=== PATIENT | female | born 1960 | race Caucasian/White ===

== ENCOUNTER 2018-09-04 10:04 | Inpatient (IN) ==
--- NOTE | 2018-09-04 09:04 | Discharge Summary ---
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 Qualifiers: Encounter type: subsequent encounter Qualified Code(s): T84.032D - Mechanical loosening of internal right knee prosthetic joint, subsequent encounter (2) Status post unicompartmental knee replacement, right Priority: Primary Status: Chronic (3) Status post revision of total replacement of right knee Priority: Primary Status: Acute (4) Stress incontinence Priority: Secondary Status: Chronic (5) Hepatitis A Priority: Secondary Status: Chronic Qualifiers: Hepatic coma status: without hepatic coma Qualified Code(s): B15.9 - Hepatitis A without hepatic coma - Hospital Course Hospital course: Ms. Moon is a 58 year old female POD#1 Right revision robotic-assisted Total knee replacement 09/04/18 Dr. Maxwell PCR - Patient seen at bedside. Relative at bedside. A&Ox3 Dressing and incision c/d/i Zipline and yara intact No calf tenderness, erythema, or warmth. Neurovascularly intact b/l LE. Labwork and medications reviewed. Pain control: Adequate - has been getting Toradol and Ofirmev -Ibuprofen and Tylenol sent for outpatient use Participating in PT. All questions and concerns addressed. Educated on use of incentive spirometer, ambulation, and hydration. Patient educated on post-operative restrictions and care. Addressed: see above. Also patient having itching after anesthesia- patient to continue with Benadryl - script provided as well. D/C plan: Home with outpatient therapy today, 09/05 - Time Spent with Patient Total time spent providing and/or coordinating discharge services: - Discharge Medications Home Medications: Aspirin Enteric Coated [Aspirin EC] 325 mg PO BID 10 Days #20 tablet. 09/04/18 [Rx] Diclofenac Sodium 1 appl TP TID 09/04/18 [History] Docusate Sodium [Colace] 100 mg PO BID 5 Days #10 capsule 09/04/18 [Rx] Duloxetine HCl [Cymbalta] 60 mg PO DAILY 09/04/18 [History] OxyCODONE Immed Rel [Roxicodone 5 MG] 5 mg PO Q6HR PRN 7 Days #28 tablet 09/04/18 [Rx] Oxybutynin [Ditropan] 5 mg PO BID 09/04/18 [History] Allergies/Adverse Reactions: Allergy/AdvReac Type Severity Reaction Status Date / Time No Known Allergies Allergy Verified 09/04/18 10:45 Date of admission: 09/04/18 Primary care physician: Jozef Jaramillo MD Discharging clinician: Gregg Maxwell - VTE Documentation of Mechanical Device: Venous foot pump, device - Patient Status Disposition: Home, Self-Care Condition: Good Functional capacity at discharge: uses cane/walker Overall status at discharge: patient is progressing back to baseline - Discharge Instructions Follow Up With: Jozef Jaramillo MD [Primary Care Provider] - Additional Instructions: Discharge Instructions: Total Knee Replacement Please call [facility] ([phone]), your Primary Care Physician, or report to the Emergency Room if you have any of the following symptoms: Nausea, vomiting, fever greater that 101.5, swelling, chest pain, shortness of breath, increased pain/redness/drainage/odor for your incision site, numbness/tingling, or any other concerning symptoms. ACTIVITY:Weight-bearing as tolerated. You may progress off support (crutches or walker) as tolerated. Incentive Spirometer 10 times an hour. MEDICATIONS: Upon discharge resume your home medications. Take all the medications as prescribed. Take a stool softener if taking narcotic pain medications. Stool softeners are only effective if you drink enough fluids. Drink 6-8 glass of water or fluids a day, unless this is not allowed for another health problem. Despite using stool softeners, if you haven't had a bowel movement in 3 days, please switch to a gentle laxative. Gentle laxatives are sold over the counter. You should have a bowel movement within 24 hours, if not call the office. You will be discharged from the hospital with a prescription for pain medication. You are encouraged to decrease the use of narcotic pain medication as tolerated. Should you require a refill, please call the office. [facility] prescribes narcotic pain medication for only 4-6 weeks after surgery. If you require pain medication beyond this time period, you may be referred to your Primary Care Physician or to the Pain Clinic for further evaluation. Plan ahead for refills on pain medication as many narcotics either need to be picked up at the office or mailed. It is best to call 48-72 hours in advance of needing a prescription refill so you don't run out of medication. To help control the post-operative pain, you may take NSAIDs (Aleve,Advil, Motrin, Ibuprofen, Naprosyn) or Tylenol as prescribed on the bottle in addition to the pain medication. ANTICOAGULATION (blood thinners): Continue your Aspirin, Lovenox or Coumadin as prescribed to help prevent a blood clot in the leg or in the lungs. As long as your incision remains dry and you tolerate the NSAIDs (Aleve, Advil, Motrin, ibuprofen, naprosyn), it is OK to use the NSAIDS while you are taking your anticoagulation medication. Should your incision start to drain, stop the NSAID and contact our office. Common symptoms of blood clot in the legs include: localized pain, swelling, calf tenderness, redness or discoloration of the skin. Blood clot in the lung symptoms include: shortness of breath, rapid pulse, sweating, and chest pain that worsens with deep breathing, coughing up blood, lightheadedness, feelings of anxiety. If you experience any of these symptoms notify your physician immediately, go to the emergency room, or if having trouble breathing, call 911. WOUND CARE: Leave the dressing on for 7 to 10days. You may change the dressing if it becomes saturated greater than 50%. Do not get the dressing wet at anytime. Wash your hands with antibacterial soap, rinse and dry prior to any wound care. If you have yara the visiting nurse or rehab facility can remove the stapes 10-14 days after surgery and place steri-strips across the wound. Leave the steri-strips in place until they fall off on their won. You may let water from the shower run on top of the steri-strips. If you do not have a visiting nurse or rehab facility, you will need to return to the office at 10-14 days for the yara to be removed. If you have itching or redness around the dressing call the office. FOLLOW-UP: Please follow up with your surgeon in the orthopedic clinic in 4 weeks from the day of surgery. If you have yara that need to be removed, you will need to come back to the office in 10-14 days from the day of surgery. - Diet and Activity Activity: as per physical therapy Diet: advance to your usual diet
[2018-09-04] MEDS ORDERED: CeFAZolin Syr 2,000MG/20 ML 2,000 MG/20 ML SYRINGE IVPB ONE (10:22)
[2018-09-04] MEDS ORDERED: Ringers Solution, Lactated 1,000 ML IVC SCH ×2 (10:30→16:03)
[2018-09-04] MEDS ORDERED: Propofol 500 MG/50 ML INFUS..BTL ONE (10:40)
[2018-09-04] MEDS ORDERED: Lidocaine -MPF 2% 2 ML VIAL ONE (10:40)
[2018-09-04] MEDS ORDERED: *HR* FentaNYL (PF) 100 MCG/2 ML VIAL ONE (10:41)
[2018-09-04] MEDS ORDERED: *HR* Midazolam HCl 2 MG/2 ML VIAL ONE (10:41)
--- NOTE | 2018-09-04 10:47 | History & Physical Report ---
Date of Encounter: 09/04/18 Time of Encounter: 10:47 24 Hour HP Update - Instructions Instructions: If the History and Physical is less than 30 days old and was completed prior to A.M. admission and or procedure and has NOT been updated on calendar day of procedure please complete this update prior to performing procedure. - Update Patient reports changes in Medical Condition: No Changes in examination, assessment, or condition: No Changes in Medication: No Preop tests/diagnostics Reviewed: Yes Surgery Remains Indicated: Yes Consent for Planned Operative Procedure(s) Verified: Yes - Pre-Operative Checklist Preoperative Checklist Indicated: No Prophylactic Antibiotic Ordered: Yes Is VTE Prophylaxis Indicated?: Yes
[2018-09-04] MEDS ORDERED: Famotidine 20 MG/2 ML VIAL IVP ONE (10:53)
[2018-09-04] MEDS ORDERED: Celecoxib 100 MG CAPSULE PO ONE (10:54)
[2018-09-04] MEDS ORDERED: Pregabalin 75 MG CAPSULE PO ONE (10:54)
--- NOTE | 2018-09-04 10:58 | Anesthesia Evaluation PreOp ---
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 09/04/18 [Rx] Diclofenac Sodium 1 appl TP TID 09/04/18 [History] Docusate Sodium [Colace] 100 mg PO BID 5 Days #10 capsule 09/04/18 [Rx] Duloxetine HCl [Cymbalta] 60 mg PO DAILY 09/04/18 [History] OxyCODONE Immed Rel [Roxicodone 5 MG] 5 mg PO Q6HR PRN 7 Days #28 tablet 09/04/18 [Rx] Oxybutynin [Ditropan] 5 mg PO BID 09/04/18 [History] Allergy/AdvReac Type Severity Reaction Status Date / Time No Known Allergies Allergy Verified 09/04/18 10:45 - Meds/Allergy Pre-op Review Medications Reviewed: Yes Allergies Reviewed: Yes Beta Blockers on Current Med List: No Anesthesia Results - Labs Laboratory Tests 04/10/18 08/31/18 08/31/18 08:10 09:55 09:55 Hgb 14.4 POC Hgb 12.1 Plt Count 228 PT 10.8 INR 1.0 APTT 35.2 Sodium Potassium BUN Creatinine 08/31/18 09:55 Hgb POC Hgb Plt Count PT INR APTT Sodium 139 Potassium 4.0 BUN 8 Creatinine 0.66 - Imaging EKG: report reviewed (SR) Anesthesia Exam O2 Sat Height 1.65 m Height 1.65 m Weight 72.121 kg Weight 72.121 kg O2 Sat by Pulse Oximetry 97 Vital Signs Temp Pulse Resp BP Pulse Ox 98.3 F 74 18 147/82 97 09/04/18 10:27 09/04/18 10:27 09/04/18 10:27 09/04/18 10:27 09/04/18 10:27 Height: 5'5 Weight: 159 lbs NPO (# of Hours): MN Pain Scale: 0 - HEENT Pupil (Motor): Pupils equal, EOMI Mallampati: II Teeth: Normal Oral Opening: Greater than 3 - LEVELING MACHINE OPERATOR LOC: Oriented LEVELING MACHINE OPERATOR Motor: Normal RUE, Normal LUE, Normal RLE, Normal LLE, Normal Face LEVELING MACHINE OPERATOR Sensory: Normal: RUE, LUE, RLE, LLE, Face - Cardiac Rhythm: Regular Murmur: None JVD: No Carotid Bruit: No - Pulmonary Breath Sounds: bilateral Clear Respiratory Effort: Symmetrical Anesthesia Assess/Plan ASA Score: 2 Level of consciousness: Cooperative, Oriented Anesthetic Plan: Regional Nerve Block, Spinal Regional Nerve Block Plan: Adductor canal Autologous Blood: No Monitoring Plan: Standard Monitors Recovery Plan: PACU (Discussed SAB, Adductor Canal Block, possible GA, agrees to proceed)
[2018-09-04] MEDS ORDERED: Tranexamic Acid 1,000 MG/10 ML VIAL ONE (11:12)
[2018-09-04] MEDS ORDERED: Ethanol\\Acetic Acid\\Na Ace\\Ben 1,000 ML IRRIG.SOLN IR ONE (11:25)
[2018-09-04] MEDS ORDERED: *HR* Morphine Sulfate/PF 10 MG/10 ML AMPUL ONE (11:30)
[2018-09-04] MEDS ORDERED: ROPIVACAINE HCL/PF 0.5% 30 ML VIAL ONE (11:31)
[2018-09-04] MEDS ORDERED: Tetracaine/PF 20 MG/2 ML AMPUL ONE (11:31)
[2018-09-04] MEDS ORDERED: Lidocaine -MPF 1% 5 ML AMPUL ONE (11:37)
--- NOTE | 2018-09-04 12:27 | Anesthesia Procedures ---
Date of Encounter: 09/04/18 Time of Encounter: 10:55 Procedures: Anesthesia - Epidural/Spinal Patient ID/Chart reviewed: Yes Patient examined: Yes Consent Obtained: Yes Supplemental Oxygen: Nasal Cannula Supplemental Oxygen Rate (L/min): 2 Sedation: Versed (mg): 2 Sedation: Fentanyl (mcg): 50 Site Prep: Aseptic Technique, Sterile prep and drape, Povidone-Iodine 1% Patient position: upright Local Anesthetic: Lidocaine 1% Amount of Local Anesthetic used: 5 Interspace Used: L4-L5 Loss of Resistance (SEBLE): No Blood: No CSF: Yes Paresthesia: No Spinal Needle Gauge: 24 Spinal Dose: 10 mg isobaric marcaine, duramorph 250 micrograms Procedure: Pt sitting, monitors placed, sterile P and Drape betadine Midline L4-5, patient tolerated procedure well Vitals + FHT's: Vital Signs/O2 Sat/Glucose, Most Current Temp Pulse Resp BP Pulse Ox 09/04/18 12:24 71 129/79 99 09/04/18 12:20 74 126/73 99 09/04/18 12:17 69 127/73 99 09/04/18 12:14 68 123/75 99 09/04/18 12:09 73 126/72 98 09/04/18 11:54 81 142/78 99 09/04/18 10:27 98.3 F 74 18 147/82 97 - Nerve Block Procedure Date: 09/04/18 Time: 12:00 Pre-op Diagnosis: Aseptic Loosening Rt TKA Surgical Procedure: Revision TKA Checklist: Correct Patient Identifier Correct side: Right Blood Thinner: No Monitor Applied: EKG, BP, Pulse Oximetry Sedation: Versed (mg): 2 Sedation: Fentanyl (mcg): 50 Indication: Post Op Analgesia Pre-op Neuro Deficits: No Block Type: Other (Adductor Canal Block) Catheter placed: No Sterile Technique: Yes Ultrasound used: Yes Anatomy identified: Yes Visual spread of Local: Yes Neuro Stimulation: No Blood on Needle Aspiration: No Smooth Injection of Local: Yes Pain with Injection of Local: No Prep: Chlorhexadine Needle: 21 x 100 mm Stimuplex Local: Tetracaine (20), Ropivacaine (0.5%) Volume (cc): 30 Number of Attempts: 1 Complications: None/effective block Vitals: Vital Signs/O2 Sat/Glucose, Most Current Temp Pulse Resp BP Pulse Ox 09/04/18 12:24 71 129/79 99 09/04/18 12:20 74 126/73 99 09/04/18 12:17 69 127/73 99 09/04/18 12:14 68 123/75 99 09/04/18 12:09 73 126/72 98 09/04/18 11:54 81 142/78 99 09/04/18 10:27 98.3 F 74 18 147/82 97
[2018-09-04] MEDS ORDERED: *HR* Promethazine 25 MG/ML VIAL IVP PRN (12:45)
[2018-09-04] MEDS ORDERED: *HR* Morphine 2 MG/ML SYRINGE IVP PRN (12:45)
[2018-09-04] MEDS ORDERED: *HR* OxyCODONE Immed Rel 5 MG TABLET PO PRN (12:45)
[2018-09-04] MEDS ORDERED: *HR* PHENYLEPHRINE 1,000 MCG/10 ML SYRINGE IVP ONE (13:57)
--- NOTE | 2018-09-04 13:59 | Orthopedic Operative Note ---
Date of procedure: 09/04/18 Pre-op diagnosis: Aseptic loosening right unicondylar knee replacement Post-op diagnosis: same Procedure: Procedure: Right revision robotic-assisted Total knee replacement Estimated blood loss: 200 cc Hardware: Metal and polyethylene replacement. Press-fit Liz Femur: 3 Tibia: 4 PS insert: 16 Patella: 36 Exam Under anesthesia: 5 degrees hyperextension 5 degree varus as calculated by the robot full flexion and no instability Procedural Notes: Aseptic loosening femoral and tibial components, grade 4 changes patella Operative procedure: The patient was brought to the operating room and placed on the operating room table. After general anesthesia was administered the operative knee was examined. Findings were noted in the exam under anesthesia. The operative extremity was prepped and draped in sterile surgical fashion. The patient received IV antibiotics prior to skin incision. The incision was made through the old incision. A standard midline incision was made centered over the patella. The incision was made through the skin and subcutaneous tissue. A medial parapatellar tendon approach was performed. Care was taken to preserve tissue along the medial aspect of the patella. And to protect the patella tendon. The deep MCL was released off the medial tibia. The infra patella fat pad was excised. Wound encountered was consistent with normal joint fluid was sent for Gram stain and culture. The patella was everted and cut was made at the level of the insertion of the quadriceps and patella tendon. The patella was sized the guide was seated and the lug holes are drilled. Knee was brought into flexion. Patient noted to have grade 4 changes patella. Steinmann pins were placed in the tibia and the femur for the tibial and femoral arrays respectively. Checkpoints were also placed in the tibia and the femur for calculation purposes. The knee including the femur and the tibial registered. Osteophytes, ACL and PCL were excised at this point. Extension and flexion were assessed with a valgus stress components were adjusted on the computer to balance the knee. The femoral and tibial components were loose and removed without incident. Femoral cuts were made first with robotic assistance, these included the anterior cut posterior cuts chamfer cuts. Tibial cut was then performed with robotic assistance as well. Bone fragments were removed, as well as the medial and lateral meniscus. The size 3 femoral guide was seated box cut was made lug holes are drilled. The size 4 tibial tray was seated and prepared with the fin cutter. Trial reduction with the 16 PS Carey revealed extension of 0 degree and 3 degrees varus full flexion. No varus valgus instability. Trial reduction revealed excellent patella tracking. All trial components were removed all bony surfaces were irrigated. The Tibia was seated followed by the femur, The selected Carey size was seated and secured patella. Patient had similar findings for motion and stability. The knee was closed by the PA. The knee was then irrigated out with 2 L of pulse irrigation. The extensor mechanism was closed with #2 FiberWire suture and #2 PDS suture. The subcutaneous tissue was then irrigated and closed deep with #1 PDS suture superficially with 0 PDS suture and skin was closed with zip tie The patient was then placed in a sterile dressing and a postoperative brace extubated and transferred to recovery room in stable condition. Anesthesia: spinal Surgeon: Gregg Maxwell Was there an marketing administrative assistant present: Yes Glove Tagger: Ashley Lee Estimated blood loss (cc): 200 Condition: stable Disposition: PACU
--- NOTE | 2018-09-04 14:51 | Anesthesia Evaluation Post Op ---
Date of Encounter: 09/04/18 Time of Encounter: 14:50 - Vital Signs Vital Signs: vss - Lungs Lungs: Clear Ascult./Percussion - Airway Airway: Non-obstructed - Cardiovascular Regular Rate, Baseline Rhythm - Mental Status Mental Status: Alert & Oriented, Answers Appropriately - Pain Pain Scale: 0 (pt had SAB and currently has sensation at level of hips) Pain Scale used: Numeric (1 - 10) - Nausea Vomiting Nausea Vomiting: Not Present - Hydration Hydration: Tolerates oral liquids, Ice chips - Discharge PostOp Status: Transfer Patient to floor
[2018-09-04 15:48] LABS: Hematocrit 36.6 % (35.3-44.9)
[2018-09-04 15:52] LABS: Hemoglobin 12.1 g/dL (11.5-15.4)
[2018-09-04] MEDS ORDERED: MOM Conc 10 ML UD.LIQ PO PRN (16:03)
[2018-09-04] MEDS ORDERED: Sennosides 8.6 MG TABLET PO PRN (16:03)
[2018-09-04] MEDS ORDERED: Naloxone 0.4 MG/ML INJ IVP PRN (16:03)
[2018-09-04] MEDS ORDERED: traMADol 50 MG TABLET PO PRN (16:03)
[2018-09-04] MEDS ORDERED: Temazepam 15 MG CAPSULE PO PRN (16:03)
[2018-09-04] MEDS ORDERED: *HR* Enoxaparin 30 MG/0.3 ML SYRINGE SQ SCH (18:00)
[2018-09-04] MEDS: *HR* Enoxaparin 30 MG/0.3 ML SYRINGE SQ SCH (18:15)
[2018-09-04] MEDS: *HR* OxyCODONE/APAP 5/325 TABLET PO PRN (20:26)
[2018-09-04] MEDS: Ondansetron 4 MG/2 ML VIAL IVP PRN (21:17)
[2018-09-04] MEDS: *HR* OxyCODONE Immed Rel 5 MG TABLET PO PRN (23:33)
[2018-09-05] MEDS: *HR* OxyCODONE Immed Rel 5 MG TABLET PO PRN (03:07)
[2018-09-05] MEDS: *HR* OxyCODONE/APAP 5/325 TABLET PO PRN (05:14)
[2018-09-05] MEDS: *HR* Enoxaparin 30 MG/0.3 ML SYRINGE SQ SCH (05:15)
[2018-09-05 06:08] LABS: Hematocrit 32.9 % (35.3-44.9)
[2018-09-05 06:09] LABS: BUN/Creatinine Ratio 14 (6-26); Blood Urea Nitrogen 9 mg/dL (8-23); Calcium 8.4 mg/dL (8.6-10.3); Carbon Dioxide 22 mEq/L (23-29); Chloride 100 mEq/L (98-107); Glucose 102 mg/dL (70-105); Osmolality,Calculated 271 (280-300); Potassium 3.7 mEq/L (3.5-5.1); Sodium 131 mEq/L (136-145); eGFR For Non-African Americans > 60 (> 60)
[2018-09-05 06:24] VITALS: BP 116/76
[2018-09-05] MEDS: Ondansetron 4 MG/2 ML VIAL IVP PRN (06:28)
--- NOTE | 2018-09-05 06:37 | Orthopedics Progress Note ---
Date of Encounter: 09/05/18 Time of Encounter: 06:36 Subjective Interval history: Patient was seen this morning doing well without complaints. Afebrile vital signs stable. Operative extremity: Neurovascularly intact Dressing clean dry and intact Calves nontender Assessment and plan: Continue with postoperative care Gram stain negative for bacteria plan for discharge today Objective Vital signs: Vital Signs Temp Pulse Resp BP Pulse Ox 09/05/18 06:21 98.5 F 83 16 116/76 96 09/05/18 04:06 98.3 F 91 16 120/70 95 09/04/18 22:57 98.3 F 93 17 118/72 94 09/04/18 18:21 98.0 F 72 16 130/81 96 09/04/18 16:54 128/82 09/04/18 15:34 97.2 F L 67 16 122/77 97 09/04/18 15:06 98.2 F 69 14 130/62 97 09/04/18 14:56 98.2 F 70 14 122/69 100 09/04/18 14:46 60 14 114/77 97 09/04/18 14:36 67 16 126/73 99 09/04/18 14:26 98 F 74 18 121/82 99 09/04/18 12:47 97 127/71 100 09/04/18 12:43 67 125/73 100 09/04/18 12:40 67 121/73 100 09/04/18 12:35 68 130/79 100 09/04/18 12:31 64 126/76 100 09/04/18 12:27 70 126/82 100 09/04/18 12:24 71 129/79 99 09/04/18 12:20 74 126/73 99 09/04/18 12:17 69 127/73 99 09/04/18 12:14 68 123/75 99 09/04/18 12:09 73 126/72 98 09/04/18 11:54 81 142/78 99 09/04/18 10:27 98.3 F 74 18 147/82 97 Intake and Output 09/04/18 09/04/18 09/05/18 15:59 23:59 07:59 Intake Total 100 / 100 100 / 100 Output Total 200 / 200 Balance -200 / -200 100 / 100 100 / 100 Intake: IV Fluids 100 / 100 100 / 100 Ancef 2,000 MG In 0.9 % Sodium 100 / 100 100 / 100 Chloride 100 ML @ 200 mls/hr IVPB Q8H [facility] Rx#:[id number] Output: Estimated Blood Loss 200 / 200 Other: # Voids 1 Weight 72.121 kg 71.1 kg Patient Weight 09/05/18 23:59 Weight 71.1 kg - Labs CBC & BMP: 09/05/18 04:48 09/05/18 04:48 Labs: Abnormal lab results Hgb 11.0 g/dL (11.5-15.4) L 09/05/18 04:48 Hct 32.9 % (35.3-44.9) L 09/05/18 04:48 Sodium 131 mEq/L (136-145) L 09/05/18 04:48 Carbon Dioxide 22 mEq/L (23-29) L 09/05/18 04:48 Calculated Osmolality 271 (280-300) L 09/05/18 04:48 Calcium 8.4 mg/dL (8.6-10.3) L 09/05/18 04:48 Consult Discharge Plan - Plan Referrals: Jozef Jaramillo MD [Primary Care Provider] -
[2018-09-05] MEDS ORDERED: Ketorolac 30 MG/ML VIAL IVP PRN (06:57)
[2018-09-05] MEDS ORDERED: Acetaminophen IV 1,000 MG/100 ML INFUS..BTL IVPB PRN (07:02)
--- NOTE | 2018-09-05 08:54 | Event Note ---
Date of Encounter: 09/05/18 Time of Encounter: 08:54 PCR- POD#1 Right revision robotic-assisted Total knee replacement 09/04/18 Dr. Maxwell PCR - Patient seen at bedside. Relative at bedside. A&Ox3 Dressing and incision c/d/i Zipline and yara intact No calf tenderness, erythema, or warmth. Neurovascularly intact b/l LE. Labwork and medications reviewed. Pain control: Adequate - has been getting Toradol and Ofirmev - will send with Ibuprofen and Tylenol as well Participating in PT. All questions and concerns addressed. Educated on use of incentive spirometer, ambulation, and hydration. Patient educated on post-operative restrictions and care. Addressed: see above. Also patient having itching after anesthesia- patient to continue with Benadryl - script provided as well. D/C plan: Home with outpatient therapy today, 09/05 Short CBC 09/05/18 09/04/18 Range/Units 04:48 15:15 Hgb 11.0 L 12.1 D (11.5-15.4) g/dL Hct 32.9 L 36.6 (35.3-44.9) % BMP 09/05/18 Range/Units 04:48 Sodium 131 L (136-145) mEq/L Potassium 3.7 (3.5-5.1) mEq/L Chloride 100 (98-107) mEq/L Carbon Dioxide 22 L (23-29) mEq/L BUN 9 (8-23) mg/dL Creatinine 0.66 (0.60-1.20) mg/dL Glucose 102 (70-105) mg/dL Calcium 8.4 L (8.6-10.3) mg/dL Vital Signs Temp Pulse Resp BP Pulse Ox 09/05/18 06:21 98.5 F 83 16 116/76 96 09/05/18 04:06 98.3 F 91 16 120/70 95 09/04/18 22:57 98.3 F 93 17 118/72 94 09/04/18 18:21 98.0 F 72 16 130/81 96 09/04/18 16:54 128/82 09/04/18 15:34 97.2 F L 67 16 122/77 97 09/04/18 15:06 98.2 F 69 14 130/62 97 09/04/18 14:56 98.2 F 70 14 122/69 100 09/04/18 14:46 60 14 114/77 97 09/04/18 14:36 67 16 126/73 99 09/04/18 14:26 98 F 74 18 121/82 99 09/04/18 12:47 97 127/71 100 09/04/18 12:43 67 125/73 100 09/04/18 12:40 67 121/73 100 09/04/18 12:35 68 130/79 100 09/04/18 12:31 64 126/76 100 09/04/18 12:27 70 126/82 100 09/04/18 12:24 71 129/79 99 09/04/18 12:20 74 126/73 99 09/04/18 12:17 69 127/73 99 09/04/18 12:14 68 123/75 99 09/04/18 12:09 73 126/72 98 09/04/18 11:54 81 142/78 99 Intake and Output 09/04/18 09/05/18 09/05/18 23:59 07:59 15:59 Intake Total 100 / 100 100 / 100 240 / 240 Balance 100 / 100 100 / 100 240 / 240 Intake: IV Fluids 100 / 100 100 / 100 Ancef 2,000 MG In 0.9 % Sodium 100 / 100 100 / 100 Chloride 100 ML @ 200 mls/hr IVPB Q8H [facility] Rx#:[id number] Oral 240 / 240 Other: Meal Breakfast Percent of Meal Consumed 0% # Voids 1 Weight 71.1 kg Patient Weight 09/05/18 23:59 Weight 71.1 kg
[2018-09-05] MEDS ORDERED: Acetaminophen IV 1,000 MG/100 ML INFUS..BTL IVPB SCH (12:00)
== END 2018-09-05 12:16 | disposition home or self-care (01) | DRG 467 ==
LOC: SAMDAY 10:04 → 3NENU 15:52
PROVIDERS: ADMIT Orthopaedic Surgery; ATTEND Orthopaedic Surgery